=== PATIENT | female | born 1970 | race Caucasian/White ===

== ENCOUNTER → 2016-07-12 | Outpatient (CLI) | payer BC ==
--- NOTE | 2016-07-12 20:05 | DIAGNOSTIC IMAGING REPORT ---
CHEST 2 VIEWS ROUTINE CLINICAL HISTORY: Cough. COMPARISON STUDY: No previous studies for comparison. FINDINGS: Lung volumes are normal. Lungs are clear. There is no evidence of pulmonary edema. A nipple shadow projects over the left lower lung. Pulmonary vascularity is normal. Cardiac size is normal. Mediastinal contours are normal. There is no evidence of pulmonary edema. IMPRESSION: No acute cardiopulmonary findings. Electronically signed by: Jon Jacobs M.D. 07/12/2016 8:04 PM Dictated Date/Time: 07/12/2016 8:03 PM
== END | disposition home or self-care (01) ==
LOC: C.RAD 19:32
PROVIDERS: ATTEND Family Medicine Adolescent Medicine
DX: R05 Cough (principal)

== ENCOUNTER → 2017-01-04 | Outpatient (CLI) | payer BC ==
--- NOTE | 2017-01-05 16:02 | MAMMOGRAPHY REPORT ---
BILATERAL DIGITAL SCREENING MAMMOGRAM TOMOSYNTHESIS WITH CAD: 01/04/2017 CLINICAL HISTORY: Routine screening. Patient has no complaints. TECHNIQUE: Breast tomosynthesis in addition to standard 2D mammography was performed. Current study was also evaluated with a Computer Aided Detection (CAD) system. COMPARISON: Comparison is made to exams dated: 01/01/2016 mammogram, 12/27/2014 mammogram, 11/21/2013 ma mmogram, 11/14/2012 mammogram, 11/09/2011 mammogram, and 11/03/2011 mammogram - [facility]. BREAST COMPOSITION: The tissue of both breasts is heterogeneously dense, which may obscure small mas ses. FINDINGS: There is a lobulated and circumscribed 12 mm mass in the subareolar right breast. Althoug h this could represent a cyst or duct ectasia, additional targeted ultrasound and possible additional mammographic views are recommended. No other suspicious mass, architectural distortion or cluster of microcalcifications is seen bilatera lly. IMPRESSION: ACR BI-RADS CATEGORY 0: INCOMPLETE EVALUATION: NEED ADDITIONAL IMAGING EVALUATION The 12 mm lobulated and circumscribed mass in the subareolar right breast needs additional evaluation . The patient will be called to schedule an appointment. Approximately 10% of breast cancers are not detected with mammography. A negative mammographic report should not delay biopsy if a clinically suggestive mass is present. Ludmila Titus M.D. ay/:01/04/2017 19:04:05 Manager Ent: Imani DUARTE(Shakira)(Patrice)([place]), [facility] letter sent: Addl Imaging 0 BI-RADS Code: ACR BI-RADS Category 0: Incomplete Evaluation: Need Additional Imaging Evaluation
== END | disposition home or self-care (01) ==
LOC: C.MAMM 07:28
PROVIDERS: ATTEND Nurse Practitioner Family
DX: Z12.31 Encounter for screening mammogram for malignant neoplasm of breast (principal); N63 Unspecified lump in breast

== ENCOUNTER → 2017-01-14 | Outpatient (CLI) | payer BC ==
--- NOTE | 2017-01-14 15:34 | MAMMOGRAPHY REPORT ---
ULTRASOUND OF RIGHT BREAST: 01/14/2017 CLINICAL HISTORY: Callback from screening mammogram for right breast mass. COMPARISON: Comparison is made to exams dated: 01/04/2017 mammogram, 01/01/2016 mammogram, 12/27/2014 m ammogram, 11/21/2013 mammogram, 11/14/2012 mammogram, and 11/09/2011 ultrasound - [facility] nter. TECHNIQUE: Real-time targeted ultrasound of the right breast was performed. FINDINGS: Real-time, high resolution targeted ultrasound was performed of the right subareolar breas t in the region of the mammographic mass. In the right 12:00 subareolar breast, there is an oval cir cumscribed hypoechoic solid mass with internal vascularity, which measures 12 x 6 x 9 mm. This corre sponds with the mammographic mass and is indeterminant. Recommend ultrasound-guided core needle biop sy for further evaluation. Considerations include fibroadenoma or papilloma. IMPRESSION: ACR BI-RADS CATEGORY 4: SUSPICIOUS - FOLLOW-UP RECOMMENDED Hypoechoic 12 mm mass in the right 12:00 subareolar breast, which corresponds with the mammographic m ass. The mass is indeterminate and ultrasound-guided core needle biopsy is recommended for further e valuation. A phone call was made to the physician's office to confirm faxed results were received. The patient was verbally notified of the results. She tentatively scheduled the biopsy before leaving the depart ment. Ketty Sanders M.D. /:01/14/2017 11:43:21 Airplane Captain: Ketty Sanders MD, [facility] letter sent: Abnormal 4/5 BI-RADS Code: ACR BI-RADS Category 4: Suspicious
== END | disposition home or self-care (01) ==
LOC: C.MAMM 10:34
PROVIDERS: ATTEND Nurse Practitioner Family
DX: N63 Unspecified lump in breast (principal)

== ENCOUNTER → 2017-01-21 | Outpatient (CLI) | payer BC ==
--- NOTE | 2017-01-21 09:10 | Discharge Instructions ---
Discharge Instructions Procedure Procedure Date: Jan 21, 2017. Reason for visit: Right Mass. Discharge Discharge Date: Jan 21, 2017. Discharge Diagnosis: status post breast biopsy Instructions Activity Recommendations: Additional Limitations (see below) Return to School/Work: no limitations Recommended Home Diet: No Limitations Provider Instructions: ACTIVITY RECOMMENDATIONS: * No lifting, pushing, pulling or exercising the affected side for three days. RETURN TO SCHOOL/WORK: * You may return to work/school after the procedure, but do not perform any strenuous activities for 24 to 48 hours. MEDICATIONS: * Tylenol (two 325 mg) every four to six hours if needed for mild pain (if not allergic to Tylenol). DIET: * Resume previous diet. SPECIAL CARE INSTRUCTIONS: * Keep biopsy site dry for 24 hours. May shower after 24 hours, but do not soak (bathe) incision. * May remove Tegaderm (plastic patch) tomorrow AFTER showering. * Leave the steri-strips on for one week. Allow the steri-strips to fall off by themselves. If not off after one week, you may remove them. You may place a Bandaid crosswise over the strips, if desired. * Apply ice 10 minutes on and 10 minutes off as needed. * Wear a bra at bedtime to sleep more comfortably for 2-3 days. * Your referring physician should have the results after approximately 5 to 7 business days. * Call for unusual bleeding, fever, drainage, etc or if you have any questions call during normal business hours or after hours call Dr Sanders, . FOLLOW UP VISIT: Follow-up with Referring Physician as scheduled. Allergies Uncoded Allergies: N (Allergy, Unknown, 06/28/02) NONE (Allergy, Unknown, 06/28/02) Ramila Kirkland Recommendations: Call your doctor if: * Temperature above 101 degrees * Pain not relieved by pain medicine ordered * There is increased drainage or redness from any incision * You have any unanswered questions or concerns. Your Doctors Instructions noted above were prepared by provider Ketty Sanders. Patient Signature Section: Patient Instructions Signature Page Terra Temple Patient (or Guardian) Signature/Date: I have read and understand the instructions given to me by my caregivers. Caregiver/RN/Doctor Signature/Date: The above-named patient and/or guardian has received patient instructions on this date. + Original Patient Signature Page (only) stays with chart. Please make copy for patient.
--- NOTE | 2017-01-21 12:34 | MAMMOGRAPHY REPORT ---
ULTRASOUND GUIDED BIOPSY RIGHT BREAST: 01/21/2017 CLINICAL HISTORY: Right 12:00 subareolar breast mass. PATIENT CONSENT: The procedure, risks and benefits were discussed with the patient and informed writt en consent was obtained. A timeout was performed immediately prior to the procedure. PROCEDURE DESCRIPTION: With ultrasound guidance, aseptic technique, and lidocaine as the local anesth etic (1% lidocaine to anesthetize the skin and 1% lidocaine with epinephrine to anesthetize the deepe r tissues), the mass of concern in the right 12:00 subareolar breast was sampled 3 times with a 14-ga uge Achieve biopsy needle. Immediately thereafter, with ultrasound guidance, aseptic technique, and lidocaine as the local anesthetic, a metallic localizer clip was placed centrally in the mass. Direc t pressure was applied to the site immediately post procedure and hemostasis was achieved. Postproce dure unilateral mammograms were performed to confirm placement of the clip in the expected location o f the breast mass. The patient tolerated the procedure without complication. She was given wound ca re instructions. The specimens were sent to pathology for analysis. COMPARISON: Comparison is made to exams dated: 01/14/2017 ultrasound, 01/04/2017 mammogram, 01/01/2016 m ammogram, 12/27/2014 mammogram, and 11/14/2012 mammogram - [facility]. IMPRESSION: ULTRASOUND GUIDED BIOPSY Ultrasound guided core needle biopsy of the right 12:00 subareolar breast mass, with clip placement. The patient will receive pathology results from her referring provider. Ketty Sanders M.D. /:01/21/2017 09:11:36 Mri Tech: Sita Martínez, [facility]
--- NOTE | 2017-01-21 12:35 | MAMMOGRAPHY REPORT ---
UNILATERAL RIGHT DIGITAL DIAGNOSTIC MAMMOGRAM TOMOSYNTHESIS: 01/21/2017 CLINICAL HISTORY: Status post right breast biopsy. TECHNIQUE: Breast tomosynthesis in addition to standard 2D mammography was performed. Postprocedura l right CC and ML views were obtained. COMPARISON: Comparison is made to exams dated: 01/14/2017 ultrasound, 01/04/2017 mammogram, 01/01/2016 m ammogram, 12/27/2014 mammogram, 11/21/2013 mammogram, and 11/14/2012 mammogram - [facility]. BREAST COMPOSITION: The tissue of the right breast is heterogeneously dense, which may obscure small masses. FINDINGS: A new ribbon-shaped biopsy marker clip is seen within the biopsied mass in the right 12:00 subareolar breast. No significant postbiopsy hematoma is seen. IMPRESSION: POST PROCEDURE IMAGING FOR MARKER PLACEMENT New biopsy marker clip status post ultrasound-guided biopsy of the right 12:00 breast mass. Patholog y results are pending. Approximately 10% of breast cancers are not detected with mammography. A negative mammographic report should not delay biopsy if a clinically suggestive mass is present. Ketty Sanders M.D. /:01/21/2017 09:38:45 Canvassing Manager: Sita Martínez [facility] BI-RADS Code: Post Procedure Imaging For Marker Placement
== END | disposition home or self-care (01) ==
LOC: C.MAMM 08:50
PROVIDERS: ATTEND Nurse Practitioner Family
DX: D24.1 Benign neoplasm of right breast (principal)